=== PATIENT | male | born 1995 | race Caucasian/White ===

== ENCOUNTER 2019-07-31 14:16 | Outpatient (CLI) | payer OTHER | END 2019-07-31 15:00 | disposition home or self-care (01) | LOC: MRI 14:16 | PROVIDERS: ATTEND Orthopaedic Surgery | DX: M25.561 Pain in right knee (principal); M25.562 Pain in left knee | CPT/HCPCS: 73721 ==

== ENCOUNTER 2022-08-18 09:24 | Outpatient (CLI) | payer OTHER | END 2022-08-18 09:39 | disposition home or self-care (01) | LOC: MRI 09:24 | PROVIDERS: ATTEND Orthopaedic Surgery | DX: M25.561 Pain in right knee (principal) | CPT/HCPCS: 73718 ==

== ENCOUNTER 2022-09-17 08:28 | Outpatient (CLI) | payer OTHER | END 2022-09-17 08:38 | disposition home or self-care (01) | LOC: RAD 08:28 | PROVIDERS: ATTEND Orthopaedic Surgery | DX: M25.561 Pain in right knee (principal); M25.562 Pain in left knee ==